=== PATIENT | female | born 1995 | race Caucasian/White ===

== ENCOUNTER → 2017-04-29 | Outpatient (CLI) | payer MEDICAID | END | disposition home or self-care (01) | LOC: DIB 09:20 | DX: O24.419 Gestational diabetes mellitus in pregnancy, unspecified control (principal); Z3A.00 Weeks of gestation of pregnancy not specified | CPT/HCPCS: 97804 ==

== ENCOUNTER 2017-06-09 07:38 | Outpatient (CLI) | payer MEDICAID ==
[2017-06-09] MEDS: LACTATED RINGER'S 1,000 ML IV (08:41)
== END 2017-06-09 11:40 | disposition home or self-care (01) ==
LOC: OBT 07:38 → L-D 07:39 → OBT 11:40
DX: O62.9 Abnormality of forces of labor, unspecified (principal); Z3A.38 38 weeks gestation of pregnancy
CPT/HCPCS: 96360; 96361

== ENCOUNTER 2017-06-13 13:13 | Inpatient (IN) | payer MEDICAID ==
[2017-06-13 14:16] LABS: ADD MAN DIFF? NO
[2017-06-13 14:19] LABS: WHITE BLOOD COUNT 8.8 10^3/ul (4.8-10.8)
[2017-06-13 14:19] LABS: BASOPHILS % 0.3 % (0.0-2.0); EOSINOPHILS % 0.3 % (0.0-7.0); HEMATOCRIT 39.2 % (37.0-47.0); LYMPHOCYTES # 1.8 10^3/ul (0.8-2.9); MEAN CORPUSCULAR HEMOGLOBIN 32.9 pg (29.0-33.0); MEAN CORPUSCULAR HGB CONC 35.7 g/dl (32.0-37.0); MEAN PLATELET VOLUME 11.2 fl (7.4-10.4); MONOCYTE # 0.9 10^3/ul (0.3-0.9); MONOCYTES % 10.2 % (0.0-11.0); NEUTROPHILS % 67.6 % (39.0-77.0); NUCLEATED RED BLOOD CELLS # 0.1 10^3/ul (0.0-0.0); NUCLEATED RED BLOOD CELLS% 0.6 /100WBC (0.0-0.0); PLATELET COUNT 204 10^3/UL (140-415); RED BLOOD COUNT 4.26 10^6/ul (4.20-5.40); RED CELL DISTRIBUTION WIDTH 15.1 % (11.5-14.5)
[2017-06-13 14:26] LABS: ADD UMIC YES; UR AMORPHOUS CRYSTAL FEW /HPF (NONE SEEN); UR ASCORBIC ACID NEGATIVE (NEGATIVE); UR BACTERIA FEW /HPF (NONE SEEN); UR BILIRUBIN (Dip) NEGATIVE (NEGATIVE); UR BLOOD (Dip) 1+ mg/dL (NEGATIVE); UR CLARITY CLOUDY (CLEAR); UR COLOR YELLOW (YELLOW); UR GLUCOSE (Dip) NEGATIVE (NEGATIVE); UR KETONES (Dip) NEGATIVE (NEGATIVE); UR LEUKOCYTE ESTERASE (Dip) TRACE Leu/ul (NEGATIVE); UR MUCUS FEW /HPF (NONE SEEN); UR NITRITE (Dip) NEGATIVE (NEGATIVE); UR RBC 0 /HPF (0-5); UR SPECIFIC GRAVITY (Dip) 1.005 (1.003-1.030); UR TOTAL PROTEIN (Dip) 1+ mg/dl (NEGATIVE); UR UROBILINOGEN (Dip) NEGATIVE (NEGATIVE); UR WBC 4 /HPF (0-5)
[2017-06-13 14:38] LABS: INR 1.82; PROTIME 21.5 Sec (11.9-14.9); PT RATIO 1.7
[2017-06-13 14:39] LABS: PARTIAL THROMBOPLASTIN TIME 46.7 Sec (25.0-35.0)
[2017-06-13 14:44] LABS: ALANINE AMINOTRANSFERASE 654 IU/L (13-69); ALBUMIN 3.3 g/dl (3.3-4.9); ALBUMIN/GLOBULIN RATIO 1.06; ALKALINE PHOSPHATASE 692 IU/L (42-121); ANION GAP 18 (8-16); ASPARTATE AMINO TRANSFERASE 663 IU/L (15-46); BILIRUBIN,INDIRECT 0.9 mg/dl (0-1.1); BLOOD UREA NITROGEN 15 mg/dl (7-20); CALCIUM 8.9 mg/dl (8.4-10.2); CARBON DIOXIDE 19 mmol/L (21-31); CHLORIDE 105 mmol/L (97-110); CREATININE 2.46 mg/dl (0.44-1.00); GLUCOSE 73 mg/dl (70-220); POTASSIUM 3.7 mmol/L (3.5-5.1); SODIUM 138 mmol/L (135-144); TOTAL PROTEIN 6.4 g/dl (6.1-8.1); URIC ACID 8.9 mg/dl (3.1-7.9)
[2017-06-13 14:48] LABS: AMPHETAMINE/METHAMPHETAMINE Negative (NEGATIVE); BARBITURATES Negative (NEGATIVE); BENZODIAZEPINES Negative (NEGATIVE)
[2017-06-13 14:49] LABS: CANNABINOIDS Negative (NEGATIVE); COCAINE Negative (NEGATIVE); OPIATES Negative (NEGATIVE)
[2017-06-13] MEDS ORDERED: MISOPROSTOL 200 MCG TAB PR (15:00)
[2017-06-13] MEDS ORDERED: IBUPROFEN 600 MG TAB PO (15:00)
[2017-06-13] MEDS ORDERED: METHYLERGONOVINE 0.2 MG INJ IM (15:00)
[2017-06-13] MEDS ORDERED: OXYTOCIN 30 UNITS/LR 500 ML IV (15:00)
[2017-06-13] MEDS: DINOPROSTONE 10 MG VAG SUPP VAG (15:00)
[2017-06-13 15:21] LABS: HEPATITIS B SURFACE ANTIGEN NEGATIVE (NEGATIVE)
[2017-06-13] MEDS: LACTATED RINGER'S 1,000 ML IV ×2 (15:33→20:45)
[2017-06-13] MEDS: AZITHROMYCIN 250 MG TAB PO (15:56)
[2017-06-13] MEDS: ALBUTEROL HFA 8 GM INHALER INH ×2 (15:59→23:43)
[2017-06-13] MEDS: BUTORPHANOL 2 MG INJ IV (16:02)
[2017-06-13] MEDS ORDERED: MAGNESIUM SULFATE 4 GM/100 ML 100 ML (17:15)
[2017-06-13] MEDS: MAGNESIUM SULFATE 4 GM/100 ML 100 ML IV (17:22)
[2017-06-13] MEDS ORDERED: CA GLUCONATE (GM) 10% 10ML INJ IV (17:30)
[2017-06-13] MEDS: MAGNESIUM SULFATE 20 GM/500 ML 500 ML IV (17:46)
[2017-06-13 20:39] LABS: RAPID PLASMA REAGIN NONREACTIVE (NR)
[2017-06-13] MEDS ORDERED: FENTAnyl 2MCG/ML-ROPIV 0.2% 0 ML (20:48)
[2017-06-13] MEDS: GUAIFENESIN/DM 5ML CUP PO (21:22)
[2017-06-13] MEDS: DEXTROSE 5%-LR 1,000 ML IV (21:40)
[2017-06-13 21:51] LABS: INR 1.89; PROTIME 22.1 Sec (11.9-14.9); PT RATIO 1.7
[2017-06-13 21:52] LABS: PARTIAL THROMBOPLASTIN TIME 46.3 Sec (25.0-35.0)
[2017-06-14] MEDS: CARBOPROST 250 MCG INJ IM (00:55)
[2017-06-14] MEDS: BUTORPHANOL 2 MG INJ IV (00:55)
[2017-06-14] MEDS: OXYTOCIN 30 UNITS/LR 500 ML IV ×3 (01:02→06:14)
[2017-06-14] MEDS: LIDOCAINE 1% (MPF) 30 ML INJ INJ (01:03)
[2017-06-14] MEDS: MINERAL OIL LIGHT 10 ML VIAL TOP (01:03)
[2017-06-14 02:41] LABS: MAGNESIUM 10.3 mg/dl (1.7-2.5)
[2017-06-14] MEDS: MAGNESIUM SULFATE 20 GM/500 ML 500 ML IV (03:15)
[2017-06-14] MEDS ORDERED: CARBOPROST 250 MCG INJ IM ×2 (06:00→17:00)
[2017-06-14] MEDS ORDERED: OXYTOCIN 30 UNITS/LR 500 ML IV ×2 (06:00→17:00)
[2017-06-14] MEDS ORDERED: ZOLPIDEM 5 MG TAB PO ×2 (06:00→17:00)
[2017-06-14] MEDS ORDERED: WITCH HAZEL/GLYCERIN PAD PR (06:00)
[2017-06-14] MEDS ORDERED: MISOPROSTOL 200 MCG TAB PR ×2 (06:00→17:00)
[2017-06-14] MEDS ORDERED: OXYCODONE/ASPIRIN (4.88/325) TAB PO ×2 (06:00)
[2017-06-14] MEDS ORDERED: METHYLERGONOVINE 0.2 MG INJ IM ×2 (06:00→17:00)
[2017-06-14] MEDS ORDERED: LANOLIN 7 GM TUBE TOP ×2 (06:00→17:00)
[2017-06-14] MEDS: IBUPROFEN 600 MG TAB PO ×4 (06:12→23:55)
[2017-06-14] MEDS: AZITHROMYCIN 250 MG TAB PO (08:56)
[2017-06-14] MEDS: SENNA/DOCUSATE NA (8.6MG/50MG) TAB PO ×2 (09:00→21:56)
[2017-06-14] MEDS: BENZOCAINE 20% 56 ML SPRAY TOP (10:28)
[2017-06-14] MEDS: GUAIFENESIN/DM 5ML CUP PO (11:51)
[2017-06-14 14:21] LABS: ALANINE AMINOTRANSFERASE 418 IU/L (13-69); ALBUMIN 2.4 g/dl (3.3-4.9); ALBUMIN/GLOBULIN RATIO 0.96; ALKALINE PHOSPHATASE 506 IU/L (42-121); ANION GAP 16 (8-16); ASPARTATE AMINO TRANSFERASE 330 IU/L (15-46); BILIRUBIN,INDIRECT 0.7 mg/dl (0-1.1); BILIRUBIN,TOTAL 5.2 mg/dl (0.2-1.3); BLOOD UREA NITROGEN 15 mg/dl (7-20); CARBON DIOXIDE 19 mmol/L (21-31); CHLORIDE 103 mmol/L (97-110); CREATININE 2.75 mg/dl (0.44-1.00); GLUCOSE 122 mg/dl (70-220); POTASSIUM 3.7 mmol/L (3.5-5.1); SODIUM 134 mmol/L (135-144); TOTAL PROTEIN 4.9 g/dl (6.1-8.1)
[2017-06-14 14:29] LABS: MAGNESIUM 6.8 mg/dl (1.7-2.5)
[2017-06-14 14:33] LABS: INR 2.21; PROTIME 25.1 Sec (11.9-14.9)
[2017-06-14 14:34] LABS: PARTIAL THROMBOPLASTIN TIME 46.3 Sec (25.0-35.0)
[2017-06-14] MEDS ORDERED: HYDROCODONE/APAP (5/325) TAB PO ×2 (17:00)
[2017-06-14] MEDS ORDERED: DIBUCAINE 1% 30 GM OINT PR (17:00)
[2017-06-14] MEDS ORDERED: BENZOCAINE 20% 56 ML SPRAY TOP (17:00)
[2017-06-14] MEDS: CEPHALEXIN 500 MG CAP PO ×2 (18:35→23:54)
[2017-06-14] MEDS: WITCH HAZEL/GLYCERIN PAD PR (18:35)
[2017-06-14 18:38] LABS: MAGNESIUM 6.2 mg/dl (1.7-2.5)
[2017-06-14] MEDS: LACTATED RINGER'S 1,000 ML IV* (18:38)
[2017-06-14] MEDS: MAGNESIUM HYDROXIDE 30ML CUP PO (21:56)
[2017-06-14] MEDS: PHENOBARBITAL 32.4 MG TAB PO (21:56)
[2017-06-15] MEDS: LACTATED RINGER'S 1,000 ML IV* ×3 (00:57→16:57)
[2017-06-15 01:27] LABS: MAGNESIUM 5.5 mg/dl (1.7-2.5)
[2017-06-15] MEDS: IBUPROFEN 600 MG TAB PO ×3 (06:00→18:53)
[2017-06-15] MEDS: CEPHALEXIN 500 MG CAP PO ×3 (06:08→18:49)
[2017-06-15 08:35] LABS: WHITE BLOOD COUNT 19.3 10^3/ul (4.8-10.8)
[2017-06-15 08:35] LABS: ABNORMAL IP MESSAGE 1; HEMATOCRIT 28.9 % (37.0-47.0); HEMOGLOBIN 10.1 g/dl (12.0-16.0); MEAN CORPUSCULAR HGB CONC 34.9 g/dl (32.0-37.0); MEAN CORPUSCULAR VOLUME 94.4 fl (82.0-101.0); NUCLEATED RED BLOOD CELLS% 0.4 /100WBC (0.0-0.0); PLATELET COUNT 142 10^3/UL (140-415); RED BLOOD COUNT 3.06 10^6/ul (4.20-5.40); RED CELL DISTRIBUTION WIDTH 15.9 % (11.5-14.5)
[2017-06-15 08:40] LABS: ADD MAN DIFF? YES; POSITIVE DIFF @See below
[2017-06-15 09:00] LABS: ALANINE AMINOTRANSFERASE 312 IU/L (13-69); ALBUMIN 2.1 g/dl (3.3-4.9); ALBUMIN/GLOBULIN RATIO 0.84; ALKALINE PHOSPHATASE 440 IU/L (42-121); ANION GAP 13 (8-16); ASPARTATE AMINO TRANSFERASE 188 IU/L (15-46); BILIRUBIN,INDIRECT 0.7 mg/dl (0-1.1); BILIRUBIN,TOTAL 4.4 mg/dl (0.2-1.3); BLOOD UREA NITROGEN 22 mg/dl (7-20); CALCIUM 8.1 mg/dl (8.4-10.2); CARBON DIOXIDE 22 mmol/L (21-31); CHLORIDE 105 mmol/L (97-110); CREATININE 2.82 mg/dl (0.44-1.00); GLUCOSE 78 mg/dl (70-220); POTASSIUM 4.3 mmol/L (3.5-5.1); SODIUM 136 mmol/L (135-144); TOTAL PROTEIN 4.6 g/dl (6.1-8.1)
[2017-06-15 09:10] LABS: MAGNESIUM 5.3 mg/dl (1.7-2.5)
[2017-06-15] MEDS: PHENOBARBITAL 32.4 MG TAB PO ×3 (09:35→21:50)
[2017-06-15] MEDS: MAGNESIUM HYDROXIDE 30ML CUP PO ×2 (09:35→21:00)
[2017-06-15] MEDS: SENNA/DOCUSATE NA (8.6MG/50MG) TAB PO ×2 (09:35→21:00)
[2017-06-15 09:48] LABS: ANISOCYTOSIS 1+ (0-0); BAND NEUTROPHILS #M 1.1 10^3/ul (0.0-0.6); BAND NEUTROPHILS % (M) 6 % (0-4); BASOPHIL #M 0.3 10^3/ul (0.0-0.0); BASOPHILS % (M) 2 % (0-2); BURR CELLS 3+ (0-0); GIANT THROMBO% (M) 2 % (0-0); LYMPHOCYTES % (M) 16 % (15-51); MONOCYTE #M 0.3 10^3/ul (0.3-0.9); MONOCYTES % (M) 2 % (0-11); PLATELET ESTIMATE NORMAL; POIKILOCYTOSIS 3+ (0-0); POLYCHROMASIA 1+ (0-0); SEG NEUT #M 14.5 10^3/ul (1.6-7.5); SEGMENTED NEUTROPHILS (M) % 74 % (39-77); SMUDGE%M 3 % (0-0); TARGET CELLS 1+ (0-0)
[2017-06-16] MEDS: IBUPROFEN 600 MG TAB PO ×3 (00:33→12:00)
[2017-06-16] MEDS: CEPHALEXIN 500 MG CAP PO ×3 (00:33→12:00)
[2017-06-16] MEDS: LACTATED RINGER'S 1,000 ML IV* ×2 (00:57→08:57)
[2017-06-16] MEDS ORDERED: DIPHTH/TET/ACEL PERTUSS (ADULT) 0.5 ML VIAL IM* (09:00)
[2017-06-16] MEDS: MEASLES,MUMPS,RUBELLA VACCINE INJ SC* (09:00)
[2017-06-16] MEDS: VARICELLA VACCINE LIVE/PF 1,350 UNIT/0.5 ML ML SC* (09:00)
[2017-06-16] MEDS: DIPHTH/TET/ACEL PERTUSS (ADULT) 0.5 ML VIAL IM* (09:00)
[2017-06-16 10:09] LABS: ADD MAN DIFF? NO
[2017-06-16 10:15] LABS: WHITE BLOOD COUNT 15.2 10^3/ul (4.8-10.8)
[2017-06-16 10:15] LABS: ABNORMAL IP MESSAGE 1; BASOPHILS % 0.3 % (0.0-2.0); EOSINOPHILS % 0.1 % (0.0-7.0); HEMATOCRIT 25.9 % (37.0-47.0); LYMPHOCYTES # 2.3 10^3/ul (0.8-2.9); LYMPHOCYTES % 14.9 % (15.0-51.0); MEAN CORPUSCULAR HGB CONC 34.7 g/dl (32.0-37.0); MEAN CORPUSCULAR VOLUME 92.2 fl (82.0-101.0); MEAN PLATELET VOLUME 11.2 fl (7.4-10.4); MONOCYTE # 0.8 10^3/ul (0.3-0.9); MONOCYTES % 5.1 % (0.0-11.0); NEUTROPHIL # 11.2 10^3/ul (1.6-7.5); NEUTROPHILS % 73.9 % (39.0-77.0); NUCLEATED RED BLOOD CELLS # 0.2 10^3/ul (0.0-0.0); NUCLEATED RED BLOOD CELLS% 1.1 /100WBC (0.0-0.0); PLATELET COUNT 143 10^3/UL (140-415); RED BLOOD COUNT 2.81 10^6/ul (4.20-5.40); RED CELL DISTRIBUTION WIDTH 16.3 % (11.5-14.5)
[2017-06-16] MEDS: MAGNESIUM HYDROXIDE 30ML CUP PO (10:16)
[2017-06-16] MEDS: SENNA/DOCUSATE NA (8.6MG/50MG) TAB PO (10:16)
[2017-06-16] MEDS: PHENOBARBITAL 32.4 MG TAB PO ×2 (10:17→13:00)
[2017-06-16 10:37] LABS: POSITIVE DIFF @See below
[2017-06-16 10:47] LABS: ALANINE AMINOTRANSFERASE 211 IU/L (13-69); ALBUMIN 1.9 g/dl (3.3-4.9); ALBUMIN/GLOBULIN RATIO 0.73; ALKALINE PHOSPHATASE 417 IU/L (42-121); ANION GAP 13 (8-16); ASPARTATE AMINO TRANSFERASE 106 IU/L (15-46); BILIRUBIN,INDIRECT 0.7 mg/dl (0-1.1); BILIRUBIN,TOTAL 4.8 mg/dl (0.2-1.3); BLOOD UREA NITROGEN 32 mg/dl (7-20); CALCIUM 7.1 mg/dl (8.4-10.2); CARBON DIOXIDE 23 mmol/L (21-31); CHLORIDE 99 mmol/L (97-110); CREATININE 2.22 mg/dl (0.44-1.00); GLUCOSE 81 mg/dl (70-220); POTASSIUM 4.6 mmol/L (3.5-5.1); SODIUM 130 mmol/L (135-144); TOTAL PROTEIN 4.5 g/dl (6.1-8.1)
== END 2017-06-16 16:24 | disposition home or self-care (01) | DRG 774 ==
LOC: OBT 13:13 → L-D 13:13 → PP1 06-14 16:15 → L-D 13:23 → OBT 14:38 → L-D 14:20
PROC: 10E0XZZ Delivery of Products of Conception, External Approach (ICD-10-PCS; principal; 2017-06-14)
PROC: 3E0P7VZ Introduction of Hormone into Female Reproductive, Via Natural or Artificial Opening (ICD-10-PCS; 2017-06-14)
PROC: 3E033VJ Introduction of Other Hormone into Peripheral Vein, Percutaneous Approach (ICD-10-PCS; 2017-06-14)
PROC: 0UQGXZZ Repair Vagina, External Approach (ICD-10-PCS; 2017-06-14)
DX: O14.13 Severe pre-eclampsia, third trimester (principal); O71.4 Obstetric high vaginal laceration alone; O77.0 Labor and delivery complicated by meconium in amniotic fluid; Z3A.39 39 weeks gestation of pregnancy; Z37.0 Single live birth; O24.419 Gestational diabetes mellitus in pregnancy, unspecified control
CPT/HCPCS: 80053; 80307; 81001; 82962; 83735; 84560; 85025; 85610; 85730; 86592; 86850; 86900; 86901; 87340; 99464